=== PATIENT | male | born 1980 | race Caucasian/White ===

== ENCOUNTER → 2016-10-01 | Outpatient (CLI) | payer MEDICAID ==
[~2016-10-01] MED LIST: BACTRIM DS 8001 TAB PO; FLOMAX 0.4MG C0.4 MG PO; KEFLEX 500MG.500 MG PO; KEFLEX500 M1 PO; LIPITOR40 MG PO; MINOCYCLINE 10100 MG PO; NORCO 325 MG-51 TAB PO; SEPTRA DS 800 M1 TAB PO; TYLENOL WITH CO1 TA1 PO; ZOFRAN ODT8 MG PO
== END ==
LOC: SL 12:00
DX: G47.30 Sleep apnea, unspecified (principal); G47.10 Hypersomnia, unspecified
CPT/HCPCS: G0399-TC